=== PATIENT | male | born 1995 | race Caucasian/White ===

== ENCOUNTER 2018-04-28 20:51 | Emergency (ER) | payer OTHER ==
[~2018-04-28] VITALS: Ht 193 cm; Wt 93.0 kg
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
--- NOTE | 2018-04-28 22:06 | RADIOLOGY REPORT ---
EXAMINATION: XR ANKLE, LEFT CLINICAL INFORMATION: Fall/trauma COMPARISON: None TECHNIQUE: AP, lateral, oblique and mortise views of the left ankle. FINDINGS: The bones and soft tissues are normal. No fracture. Alignment is anatomic. Joint spaces are maintained. No joint effusion. IMPRESSION: Normal left ankle.
--- NOTE | 2018-04-28 22:26 | CT SCAN REPORT ---
EXAMINATION: CT HEAD WITHOUT CONTRAST CT CERVICAL SPINE WITHOUT CONTRAST CLINICAL INFORMATION: Trauma. COMPARISON: None. TECHNIQUE: Imaging was performed from the skull base to vertex without intravenous administration of contrast. In addition, helical noncontrast CT imaging was acquired through the cervical spine and source images were reviewed along with axial reconstructions and sagittal and coronal MPRs. DLP: 893.96 mGy-cm FINDINGS: HEAD: No intracranial mass, hemorrhage, or midline shift is visualized. The ventricles and sulci are age-appropriate. No extra-axial collections are identified. The paranasal sinuses and mastoid air cells are well aerated. CERVICAL SPINE: There is no evidence of acute cervical spine fracture. Vertebral bodies remain normal in height. Cervical vertebrae have normal alignment. Cervical disc heights are normal. The facet joints are normal. No pre- or paravertebral soft tissue abnormality is identified. Limited assessment of the lung apices is unremarkable. IMPRESSION: 1. No acute intracranial pathology. 2. No CT evidence of acute cervical spine fracture or traumatic subluxation
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
[2018-04-28] MEDS ORDERED: CYCLOBENZAPRINE10 M1 PO (22:46)
[2018-04-28] MEDS ORDERED: IBUPROFEN600 M1 PO (22:46)
[2018-04-28 22:52] VITALS: BP 130/90
== END 2018-04-28 22:54 ==
LOC: ERH 20:51
DX: M54.2 Cervicalgia (principal); M54.9 Dorsalgia, unspecified; R07.9 Chest pain, unspecified; R10.9 Unspecified abdominal pain; M25.572 Pain in left ankle and joints of left foot; V89.2XXA Person injured in unspecified motor-vehicle accident, traffic, initial encounter
CPT/HCPCS: 73610-LT; 74177